=== PATIENT | female | born 1955 | race Caucasian/White ===

== ENCOUNTER 2025-06-22 20:51 | Emergency (ER) | payer MEDICARE, MEDICAID ==
[~2025-06-22] VITALS: Ht 160 cm; Wt 85.5 kg
[~2025-06-22 20:51] MED LIST: ALBU8HFA; ATI1T PO; LEVO25TA50 PO; NORCO10T PO
--- NOTE | 2025-06-22 22:13 | RADIOLOGY REPORT ---
EXAM: CT CT LUMBAR SPINE HISTORY: INCONTINENCE, BACK PAIN COMPARISON: None CTDIvol mGy, DLP mGy*cm. TECHNIQUE: Multiple axial CT images of the spine were obtained using bone algorithm. Axial and coronal reformatting was done. Bone and soft tissue windows were reviewed. FINDINGS: The alignment of the lumbar spine is within normal limits. Bones appear osteopenic. No evidence of fracture in the lumbar spine and T12. Paraspinal soft tissues in the lumbar spine appear unremarkable. Partially visualized is evidence of some nonspecific paravertebral soft thickening at the T11 level; this is not adequately assessed on this study. Kidneys and retroperitoneum appear unremarkable. T12-L1: No abnormality demonstrated. L1-L2: No abnormality demonstrated. L2-L3: No abnormality demonstrated. L3-L4: Mild disc bulge and mild facet arthropathy without spinal canal or neural foraminal stenosis. L4-L5: Mild disc bulge, facet arthropathy and mild ligamentum flavum thickening with [id number] spinal canal narrowing and mild neural foraminal narrowing. L5-S1: Minimal disc bulge and facet arthropathy greater on the right side without spinal canal or neural foraminal stenosis. IMPRESSION: Bones appear osteopenic. No evidence of fracture in the lumbar spine. Mild lumbar spondylosis with [id number] spinal canal narrowing at L4-L5. Partially visualized is evidence of some nonspecific paravertebral soft thickening at the T11 level which is not adequately assessed on this study. This can be further evaluated with CT or MRI of this region.
--- NOTE | 2025-06-22 22:53 | ELECTROCARDIOGRAPH REPORT ---
[facility] Test Date: 2025-06-22 Test Time: 22:50:30 Pat Name: MARKUS KRAUSE Department: [facility] Patient ID: [id number] Room: Gender: F Metal Handler: : 1955 Requested By: CHAVA CHACON Order Number: [id number] Reading MD: Dr. Carlton Méndez Measurements Intervals [place] Rate: 80 P: 65 [place]: 185 QRS: 86 QRSD: 177 T: 9 QT: 455 QTc: 525 Interpretive Statements Sinus rhythm Right bundle branch block Electronically Signed On 06-23-2025 9:04:[address] Carlton Méndez Please click the below link to view image of tracing.
--- NOTE | 2025-06-22 23:42 | RADIOLOGY REPORT ---
CHEST RADIOGRAPH INDICATION: CP TECHNIQUE: Single frontal view of the chest was obtained COMPARISON: None FINDINGS: Cardiac silhouette is enlarged. Mild diffuse prominence of the pulmonary vasculature. No dense focal airspace disease or significant pleural effusions. Bones and soft tissues demonstrate no significant abnormality. IMPRESSION: Cardiomegaly with pulmonary venous congestion.
--- NOTE | 2025-06-22 23:44 | Physician Documentation ---
History of Present Illness ~ Chief Complaint: Back Pain Stated Complaint: BACK PAIN Time Seen by MD: 21:51 Primary Medical Doctor: [facility] Mode of Arrival: Wheelchair HPI A 69-year-old morbidly obese female brought to ED by friend. Right flank pain that originally radiated from the left flank a proximally two weeks ago with uri nary frequency without dysuria. Denies fever, nausea or vomiting. Patient's pain in his moderate in severity making ambulation difficult. Denies chest pain, shortness a breath and reports it she often has dependent lower leg edema for which she occasionally takes the Lasix. Denies orthopnea or dyspnea on exertion. Medication Reconciliation Allergies: Coded Allergies: No Known Allergies (Unverified , 06/04/09) Scheduled Baclofen (Baclofen), 1 TAB PO Q8H Hydrocodone Bit/Acetaminophen 10/325 MG* (Hercules 10/325 MG*), 10 MG PO QID, (Reported) Levothyroxine Sodium* (Levoxyl*), 25 MCG PO DAILY, (Reported) Lisinopril (Lisinopril), 1 TAB PO DAILY Lorazepam (Ativan), 1 MG PO BID, (Reported) albuterol inhaler (Pro-Air Inhaler), PRN, (Reported) Past Medical History Past Medical History: Atrial Fibrillation, Asthma, COPD, Hepatitis C Past Surgical History: Alcohol Use: None Lives In: Home, Assisted Care Review of Systems All Other Systems at this time: Reviewed and Negative ROS See HPI Physical Exam Physical Exam Vital Signs: RN Vital Signs have been reviewed: Yes, Temperature: 98.6, Heart Rate: 82, Respiratory Rate: 13, BP: 188/91, Pulse Oximetry: 96, Weight: 85.450 Oxygen Flow Rate: 0 General Appearance: alert, moderate distress, obese EENT: PERRL/EOMI Neck: non-tender Respiratory: lungs clear Chest: no accessory muscle use Cardiovascular: regular rate, rhythm, no edema, no gallop, no JVD, no murmur Gastrointestinal: normal palpation Rectal: deferred Bladder: non tender BacK: CVA tenderness (R), decreased range of motion, muscle spasm; No: CVA tenderness (L), vertebral tenderness, + straight leg raise Sensory/Motor: sensation grossly intact, 5/5 strength all extrem., proprioception intact Neurologic: oriented x4 Psychiatric: normal mood/affect Skin: normal color Progress Results/Orders Results/Orders Orders - CHAVA CHACON PAC Stat Ekg (06/22/25 ) Chest,Single View (06/22/25 23:32) Monitor (06/22/25 22:45) Saline Lock (06/22/25 22:45) Oxygen (06/22/25 22:45) Page Hospitalist (06/23/25 00:09) Fill Out Med Reconciliation (06/23/25 00:09) Abdomen,Single View(Kub) (06/23/25 00:59) Completed Orders - CHAVA CHACON PAC Stat Ekg (06/22/25 ) Chest,Single View (06/22/25 23:32) Cbc/Diff (06/22/25 22:45) BMP (06/22/25 22:45) PBNP (06/22/25 22:45) Hs Troponin I W Calculations (06/22/25 22:45) Acetaminophen 1,000mg/100ml Iv (Ofirmev (06/22/25 22:45) Morphine 4mg/Ml Inj. (Morphine Inj.) (06/22/25 22:45) Abdomen,Single View(Kub) (06/23/25 00:59) Vital Signs 06/22/25 06/22/25 06/22/25 06/23/25 21:12 22:41 23:18 00:32 Temp 98.6 98.6 Pulse 74 82 Resp 16 13 19 B/P (MAP) 194/85 188/91 (123) Pulse Ox 97 96 O2 Flow Rate 0 0 06/23/25 01:44 Temp 98.6 Pulse 78 Resp 18 B/P (MAP) 162/86 Pulse Ox 96 Laboratory Tests Test 06/22/25 21:10 06/22/25 23:09 Urine Specimen Description Cln catch midstream Urine Color Yellow Urine Clarity Clear Urine pH 6.5 Urine Specific [place] 1.020 Urine Protein Negative Urine Glucose (UA) Negative Urine Ketones Negative Urine Occult Blood Trace-intact Urine Nitrite Negative Urine Bilirubin Negative Urine Urobilinogen 4.0 H Urine Leukocyte Esterase Negative Urine RBC 3-10 Urine WBC 0-4 Urine Squamous Epithelial Cells Moderate Urine Bacteria Few Urine Culture Indicated Not ind Volume Urine Centrifuged 10 ml Urine Comment White Blood Count 6.3 Red Blood Count 4.83 Hemoglobin 14.5 Hematocrit 43.6 Mean Corpuscular Volume 90.3 Mean Corpuscular Hemoglobin 30.0 Mean Corpuscular Hemoglobin Concent 33.2 Red Cell Distribution Width 13.6 Platelet Count 199 Mean Platelet Volume 8.3 Neutrophils (%) (Auto) 54.8 Lymphocytes (%) (Auto) 30.1 Monocytes (%) (Auto) 9.9 Eosinophils (%) (Auto) 4.2 Basophils (%) (Auto) 1.0 Neutrophils # (Auto) 3.5 Lymphocytes # (Auto) 1.9 Monocytes # (Auto) 0.6 Eosinophils # (Auto) 0.3 Basophils # (Auto) 0.1 CBC Comment Sodium Level 140 Potassium Level 4.3 Chloride Level 104 Carbon Dioxide Level 30.8 Anion Gap 5 L Blood Urea Nitrogen 15 Creatinine 0.57 Estimated GFR/1.73 m2 > 90 BUN/Creatinine Ratio 26.3 H Glucose Level 88 Calcium Level 8.9 Troponin I High Sensitivity 21 Pro-B-Type Natriuretic Peptide 609 H Albumin 3.4 Chemistry Comments Medical Decision Making Additional information obtaine: family Findings 69-year-old female with right flank pain greater than left flank pain 2-3 weeks' duration without associated fever nausea or vomiting. Initial CT imaging obtained of the lumbar spine due to patient's initial presenting complaint of lower lumbar pain. Patient in his pending laboratory results, urinalysis results and KUB. Labs were all reassuring. No clinical suspicion for acute ACS, CHF, pulmonary edema, renal lithiasis a pyelonephritis or UTI. Patient has received pain management and has been ambulatory. Suspect presentation is secondary to musculoskeletal pain and will discharge patient with pain manage ment and instructions to follow up with the primary care. I will be placing her on Lisinopril. Patient has reliable primary care follow up. She has been road test in the emergency department and safe for discharge. She is pending the arrival of her ride. Differential Dx:Considerations: Musculoskeletal pain, Pancreatitis, Pyelonephritis, Urinary obstruction, Urolithiasis, Renal infarction, Urinary tract infection, Other (Renal Infarction, RTA, nephritic or nephrotic syndrome.) Departure Disposition: HOME / SELF CARE / HOMELESS Impression: Primary Impression: Musculoskeletal back pain Additional Impressions: Right flank pain Hypertension Qualified Codes: I10 - Essential (primary) hypertension Condition: Improved Discharge Instructions: Acute Back Pain, Adult Additional Instructions: Please follow up with the primary care physician regarding your high blood pressure and your visit in the emergency room tonight for right flank pain. Please see report she physician that you had labs obtained, CT imaging and chest x-ray. I have provided you with a low-dose antihypertensive until your visit with the doctor. Please return to the emergency department as needed. Thank you for visiting [facility]. Referrals: NO PRIMARY CARE PROVIDER (PCP) Prescriptions Baclofen (Baclofen) 10 Mg Tablet 1 TAB PO Q8H for 10 Days, #30 TAB 0 Refills Prov: CHAVA CHACON 06/23/25 Lisinopril (Lisinopril) 20 Mg Tablet 1 TAB PO DAILY for 30 Days, #30 TAB Prov: CHAVA CHACON 06/23/25 Education Educated: Patient Educated regarding: diagnosis, treatment, prognosis, need for follow up Signature Scribe Signature: . Attestation: . CHAVA CHACON Jun 22, 2025 23:44
[2025-06-22 23:53] LABS: MEAN PLATELET VOLUME 8.3 FL (7.4-10.4); RED CELL DISTRIBUTION WIDTH 13.6 % (11.5-14.5)
[2025-06-22 23:56] LABS: LEUKOCYTE ESTERASE ,URINE NEGATIVE (Neg); NITRITES, URINE NEGATIVE (Neg); OCCULT BLOOD,URINE TRACE-INTACT (Neg)
[2025-06-23 00:01] LABS: UA COLLECTION TYPE CLN CATCH MIDSTREAM
[2025-06-23 00:02] LABS: SQUAMOUS EPITHELIAL CELL,UR MODERATE /LPF (FEW)
[2025-06-23 00:13] LABS: CREATININE 0.57 MG/DL (0.40-0.90); PRO BRAIN NATRIURETIC PEPTIDE 609 PG/ML (0-125); TOTAL CARBON DIOXIDE 30.8 MMOL/L (24-32); eCRCL 76 ML/MIN; eGFR > 90 ML/MIN
[2025-06-23] MEDS: morphine 4 MG/ML inj SYRINge IV ONE (00:32)
[2025-06-23] MEDS: acetaminophen 1,000mg/100ml IV 100 ML IV ONE (00:32)
[2025-06-23] MEDS ORDERED: LISI20TA28 PO (01:06)
[2025-06-23] MEDS ORDERED: BACL10TA2 PO (01:06)
[2025-06-23 01:44] VITALS: BP 162/86; PULSE 78; RESP 18; TEMP 98.6; O2SAT 96
--- NOTE | 2025-06-23 01:48 | RADIOLOGY REPORT ---
Date: 06/23/2025 12:45 AM Examination: DI ABDOMEN,SINGLE VIEW(KUB) History: Right flank pain COMPARISON: None TECHNIQUE: Frontal views of the abdomen was obtained. FINDINGS: Bowel gas pattern is unremarkable. The lung bases are unremarkable. No acute osseous abnormality identified. No obvious calcifications although fairly large volume of stool stool limits assessment IMPRESSION: Fairly large volume of stool throughout the colon.
== END 2025-06-23 01:46 | disposition home or self-care (01) ==
LOC: ER 20:51
DX: M54.9 Dorsalgia, unspecified (principal); R10.A1 Flank pain, right side; I10 Essential (primary) hypertension; I48.91 Unspecified atrial fibrillation; J44.9 Chronic obstructive pulmonary disease, unspecified; Z86.19 Personal history of other infectious and parasitic diseases; Z79.899 Other long term (current) drug therapy; Z98.890 Other specified postprocedural states
CPT/HCPCS: 36415; 71045; 72131; 74018; 80048; 81001; 83880; 84484; 85025; 93005; 96365; 96375; 99285; J0131; J2270; 81003